=== PATIENT | male | born 1995 | race Caucasian/White ===

== ENCOUNTER 2018-12-22 08:35 | Emergency (ER) | payer SELFPAY ==
[2018-12-22 08:42] VITALS: BP 125/82; PULSE 93; RESP 16; TEMP 36.5; O2SAT 97
--- NOTE | 2018-12-22 08:56 | W.ED.GENAD ---
Discharge Plan Disposition Patient Disposition: HOME Condition: Fair Discharge Details Chief Complaint: Orthopedic Clinical Impression: Cellulitis, Ankle sprain Primary Care Provider: None,None ED Provider: Tamy Rubin Home Meds and New Rx's Prescriptions: New cephalexin [Keflex] 500 mg capsule 500 mg PO QID Qty: 28 RF: 0 Discharge Instructions Instructions: Ankle Sprain (ED), Cellulitis (ED) Additional Instructions: Encourage rest, ice, elevation. Tylenol and/or ibuprofen as needed for discomfort. Please continue with Bhavin wrap for swelling and pain persist. Your x-ray does not show any dislocation or fracture. However, the redness around the blister is concerning for skin infection. I think is appropriate to treat with antibiotics at this time. Please take Keflex as prescribed. Even if symptoms improve, please take the entire course. Our critical care rn will reach out to you regarding follow-up with primary care this week for reevaluation. Work note is attached. If you develop fever/chills, increased pain, spreading of the redness or other new/worsening symptoms please seek care urgently once again. Stand Alone Forms: Work Release Medical Decision Making Patient is 23-year-old male, accompanied by his , with chief complaint of left ankle pain. He reports that 4 days ago he rolled his, believes he suffered an inversion injury. Since that time, he has had medial sided ankle pain. States that initially it was fairly minimal but that the discomfort has increased. Pain has maximized over the past 24 hours. He did wear a pair of high boots yesterday in an effort to help support the ankle and found that these things greatly exacerbated his discomfort. Noted swelling yesterday to the medial aspect of the ankle. Awoke this morning with no blisters. On exam, the patient appears nontoxic. He has swelling and erythema to the medial aspect of the ankle. Has what appears to be fracture blisters over the medial malleolus. He has limited range of motion, particularly painful with dorsiflexion along the medial aspect of the ankle. No pain over the lateral malleolus, no pain in the foot. Vascular and sensation is intact. He is able to passively range the ankle. No pain on palpation over the fibular head or neck. As he is a point tender over the medial malleolus and does have the apparent fracture blisters, feel that imaging is appropriate at this time. I am concerned that he is developing cellulitis likely associated with the blisters. I do not see any evidence at this time for ostium myelitis. He is afebrile nontoxic-appearing. FINDINGS: Soft tissue swelling is seen about the ankle. The ankle mortise is intact. No fracture or subluxation is identified. No radiopaque foreign body seen. IMPRESSION: Soft tissue swelling but otherwise no acute findings. Discussed these findings with the patient. Advised sprain and accompanied cellulitis. Encourage rest, ice, elevation. Tylenol and ibuprofen as needed for discomfort. The blisters, feel that the best method for immobilization is an Bhavin wrap. He has been ambulating well. Patient will be prescribed Keflex. Work note given his request. Patient does not have primary care. I have asked her care according to help facilitate follow-up, will like for his ankle to be readdressed within the next 3 to 4 days. All the questions and concerns were addressed and he is in agreement with this plan. He will seek care urgently with any new or worsening symptoms. HPI General Mode of arrival: ambulatory. Date/Time Provider Initiated Documentation: 12/22/18 08:42. Limitations to Documentation: no limitations. Information obtained by: patient, family and RN notes reviewed. History of Present Illness 23 year old M presents to the emergency department with the chief complaint of left ankle pain, with intensity rated at 8. Quality is described as aching, and is localized to the left and lower extremity. Patient reports no radiation. Patient started experiencing this day(s) (4) and it has been constant (worsening). Immobilization improves symptom(s), Medication worsens symptoms . Patient notes no other symptoms.; denies fever/chills. Patient did receive the following treatments prior to arrival, none Related Data Home Medications Medication Instructions Recorded Confirmed cephalexin [Keflex] 500 mg PO QID #28 cap 12/22/18 Previous Rx's Medication Instructions Recorded cephalexin [Keflex] 500 mg PO QID #28 cap 12/22/18 Allergies Allergy/AdvReac Type Severity Reaction Status Date / Time Penicillins Allergy Severe SKIN RASH Unverified 12/22/18 08:46 General Stated Complaint: Orthopedic GAEL: 3 Review of Systems Constitutional Reports as per HPI, Denies chills, Denies fever(s), Denies headache(s) and Denies weakness ENT Denies headache(s) Cardiovascular Reports as per HPI Respiratory Reports as per HPI and Denies cough Musculoskeletal Reports as per HPI and Denies tingling Integumentary/Breasts Reports as per HPI, Reports erythema (blisters medial ankle with surrounding erythema), Reports skin pain, Reports skin swelling and Denies wounds Neurologic Reports as per HPI, Denies headache(s), Denies tingling, Denies paresthesias and Denies weakness [facility] Surgical History Appendectomy Repair of inguinal hernia Social History Smoking/Tobacco Use Status: Never Drug use: Never Substance use type: does not use Exam Const General: cooperative, healthy appearing, comfortable, no acute distress, well developed and well groomed Nutritional Appearance: average body habitus and well nourished Orientation: alert and awake Resp Effort & Inspection: normal respiratory effort, able to speak in complete sentences and no respiratory distress Cardio Rate: regular rate Rhythm: regular rhythm Skin General skin exam: erythema (along medial ankle into dorsal foot, appears to step from fx blisters) Neuro General: alert and awake Cognition: normal cognition Speech: speech normal Gait: normal gait Motor: muscle tone normal throughout Sensory Exam: no sensory deficits noted Extrem Left lower extremity: normal capillary refill, knee (no pain along fibular head/neck), lower leg Details: normal to inspection and no edema; no erythema, no tenderness, no localized swelling and no palpable cords, ankle Details: abnormal to inspection (swelling medial, erythema as above), tenderness Location: of the medial malleolus and anteromedially; not of the lateral malleolus, not of the anterior talofibular ligament, not of the achilles tendon, not posteriorly and not anteriorly, swelling Details: medially, abnormal ROM Details: pain with active ROM Details: with dorsiflexion and with eversion and warmth Location: medially; no abrasions, no lacerations, no ecchymosis, no crepitus and achilles tendon exam normal and foot Details: normal capillary refill, normal to inspection, no edema and vascular exam Details: dorsalis pedis pulse present, posterior tibial pulse present and normal capillary refill; no tenderness and no unusual warmth; abnormal to inspection (skin as above) Ankle/foot/toe images: 1. area of erythema with small grouping of what appears to be fracture blisters over medial malleolus Psych Appearance: grossly normal and well kempt Mental Status: mental status grossly normal Speech and Movement: speech and movement normal Course Vital Signs Temperature 36.5 C 12/22/18 08:42 Pulse 93 H 12/22/18 08:42 Respiratory Rate 16 12/22/18 08:42 Blood Pressure 125/82 12/22/18 08:42 Pulse Oximetry 97 12/22/18 08:42 Temperature 36.5 C 12/22/18 08:42 Temperature Source Skin 12/22/18 08:42 Pulse 93 H 12/22/18 08:42 Respiratory Rate 16 12/22/18 08:42 Respiratory Effort 12/22/18 08:47 Blood Pressure 125/82 12/22/18 08:42 Blood Pressure Position Sitting 12/22/18 08:42 Pulse Oximetry 97 12/22/18 08:42 Oxygen Delivery Method Room Air 12/22/18 08:42 Oxygen Flow Rate 0 12/22/18 08:42 Pain Level 9 12/22/18 08:47
[2018-12-22] MEDS: Ibuprofen 600 MG TAB PO (09:01)
[2018-12-22] MEDS: Acetaminophen 500 MG TAB 1000 MG PO (09:02)
--- NOTE | 2018-12-22 09:11 | DI.RAD_ITS ---
SYMPTOM/DIAGNOSIS: PAIN LEFT ANKLE: Three views were obtained. The ankle mortise appears well maintained. There is soft tissue swelling of the ankle. No fracture is identified.
--- NOTE | 2018-12-22 09:56 | DI.VRAD_ITS ---
EXAM: XR Left Ankle EXAM DATE/TIME: 12/22/2018 8:56 AM CLINICAL HISTORY: 23 years old, male; Patient HX: Left ankle pain, medial malleolus pain TECHNIQUE: Imaging protocol: XR Left ankle. Views: 3 or more views. COMPARISON: CR LEFT FIFTH TOE 01/27/2016 8:15 PM FINDINGS: Soft tissue swelling is seen about the ankle. The ankle mortise is intact. No fracture or subluxation is identified. No radiopaque foreign body seen. IMPRESSION: Soft tissue swelling but otherwise no acute findings. Dictated and Authenticated by: Sung Menjivar MD. Ordering:VICTORINO Morelos MD
[2018-12-22 10:20] VITALS: BP 108/70; PULSE 76; RESP 16; TEMP 36.6; O2SAT 96
--- NOTE | 2018-12-22 10:22 | NUR.NOTE ---
Nursing Note:Bhavin bandage applied to left ankle. BERNA, RN
== END 2018-12-22 10:24 | disposition home or self-care (01) ==
PROVIDERS: Emergency Provider Physician Assistant
DX: S93.402A Sprain of unspecified ligament of left ankle, initial encounter (principal); X50.9XXA Other and unspecified overexertion or strenuous movements or postures, initial encounter; L03.116 Cellulitis of left lower limb
CPT/HCPCS: 99283; 73610

== ENCOUNTER 2019-10-06 10:16 | Emergency (ER) | payer OTHER, BC, SELFPAY ==
[2019-10-06 10:24] VITALS: BP 121/82; PULSE 80; RESP 18; TEMP 36.6; O2SAT 98
--- NOTE | 2019-10-06 10:31 | ED.GENADUL_ITS ---
Discharge Plan Disposition Patient Disposition: HOME Condition: Stable Discharge Details Chief Complaint: Orthopedic Clinical Impression: Injury of shoulder Primary Care Provider: Chelsea Marina ED Provider: Dafne Michaels Home Meds and New Rx's Prescriptions: No Action No Known Home Meds RF: 0 Discharge Instructions Instructions: Rotator Cuff Injury (ED), Shoulder Pain (ED) Additional Instructions: Please return immediately to the emergency department if you develop any new or worsening symptoms, if your condition does not improve as expected, or if you become otherwise concerned. It is extremely important that you call soon as possible to make an appointment to be seen in follow-up for this visit by your primary care doctor and an orthopedic surgeon as we discussed. Stand Alone Forms: Work Release Referrals: Chelsea Marina [Primary Care Provider] - Vitaliy Jimenez MD [ [facility] STAFF PHYSICIAN] - Discharge Data Discharge Date/Time-TO BE ENTERED AT DEPARTURE: 10/06/19 11:37 Medical Decision Making Miky Kendrick is a 24-year-old man without reported history of major medical problems who presented to the emergency department with right shoulder pain while picking up his jackhammer this morning. On exam patient is well and nontoxic-appearing. Right upper extremity is neurovascularly intact. Initial concern for shoulder deformity while Pt clothed, after shirt removed no deformity noted. Diffuse TTP of the right shoulder without edema or overlying skin changes. No other tenderness of the right upper extremity. Concern for shoulder dislocation, fracture. Plan for IV pain control, x-ray. Will monitor and reassess. xray okay. Suspect rotator cuff injury. I had a lengthy discussion with Patient regarding return to emergency department precautions, home care, and importance of outpatient follow-up. Pt verbalizes understanding of the plan and is amenable . Patient discharged to home with clear plan for outpatient follow-up. All questions were answered. Disposition decision was made weighing the risks and benefits of hospitalization versus outpatient treatment, the risk for further decompensation, and the patient's wishes. Medical Records Medical records reviewed: Yes I reviewed the patient's medical records. Imaging Data Radiologic Study: Attestation: I personally reviewed and interpreted this imaging study as follows: Radiologist's impression: EXAM: XR SHOULDER RT COMPLETE 2+V CLINICAL HISTORY: trauma, deformity. TECHNIQUE: 2D digital imaging was performed. COMPARISON: No exams were available for comparison FINDINGS: BONES: No acute fracture is present. No bony destructive lesion is seen. JOINTS: No dislocation present. SOFT TISSUE: Normal. IMPRESSION: Unremarkable radiographs of the right shoulder. HPI General Mode of arrival: ambulatory . Date/Time Provider Initiated Documentation: 10/06/19 10:26 . Limitations to Documentation: no limitations . Information obtained by: patient, RN notes reviewed and old records reviewed . HPI Narrative: Miky Kendrick is a 24-year-old man without reported history of major medical problems presenting to the emergency room with shoulder pain. Patient reports that this morning he was jackhammering this morning, and then had sudden onset pain in his right shoulder while picking the jackhammer up. Patient reports this occurred just prior to arrival. He denies any other pain and pain in the right shoulder. He reports that the tips of all 5 digits in his right hand feel tingly, he denies any other numbness or weakness. Denies fever, shortness of breath, cough, vomiting, diarrhea. Patient reports that he was previously in his usual state of health. He states that he has never dislocated his shoulder before. Related Data Home Medications Medication Instructions Recorded Confirmed Unknown [No Known Home Meds] 10/06/19 10/06/19 Allergies Allergy/AdvReac Type Severity Reaction Status Date / Time Penicillins Allergy Severe SKIN RASH Unverified 10/06/19 10:32 General Stated Complaint: Orthopedic GAEL: 2 Review of Systems Narrative: Constitutional: denies fevers Eyes: denies eye pain ENT: denies ear pain, dental pain, sore throat Cardiovascular: denies chest pain Respiratory: denies SOB, cough GI: denies abdominal pain, vomiting : denies flank pain MSK: reports right shoulder pain, denies other arthralgias, back pain, neck pain, myalgias Skin: denies rash Neuro: denies headaches, numbness, weakness, reports tingling right fingers PFS Social History Smoking/Tobacco Use Status: Never Drug use: Never Substance use type: does not use Do you feel safe at home: Yes Do you feel safe in your relationship?: Yes Exam Narrative Exam Narrative: Constitutional: well and [id number], pleasant, conversing normally HENT: head atraumatic/normocephalic/normal inspection, mucous membranes moist Eyes: conjunctiva normal, sclera normal, pupils 3mm b/l Neck: no stridor, normal ROM, trachea midline Resp: normal work of breathing, no resp distress Cardio: regular rate, regular rhythm, radial pulses intact and symmetric Skin: warm, dry, normal color, no rash Neuro: alert, not altered, grossly non-focal, normal tone, 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 right clavicle NTTP. Psych: normal mood, normal affect, normal behavior Course Vital Signs Vital signs: Vital Signs Temperature 36.6 C 10/06/19 10:24 Pulse 80 10/06/19 10:24 Respiratory Rate 18 10/06/19 10:24 Blood Pressure 121/82 10/06/19 10:24 Pulse Oximetry 98 10/06/19 10:24 Temperature 36.6 C 10/06/19 10:24 Temperature Source Oral 10/06/19 10:24 Pulse 80 10/06/19 10:24 Respiratory Rate 18 10/06/19 10:24 Blood Pressure 121/82 10/06/19 10:24 Pulse Oximetry 98 10/06/19 10:24 Oxygen Delivery Method Cpap 10/06/19 10:24 Oxygen Flow Rate 0 10/06/19 10:24 Pain Level 6 10/06/19 10:24
--- NOTE | 2019-10-06 10:54 | DI.RAD_ITS ---
EXAM: XR SHOULDER RT COMPLETE 2+V CLINICAL HISTORY: trauma, deformity. TECHNIQUE: 2D digital imaging was performed. COMPARISON: No exams were available for comparison FINDINGS: BONES: No acute fracture is present. No bony destructive lesion is seen. JOINTS: No dislocation present. SOFT TISSUE: Normal. IMPRESSION: Unremarkable radiographs of the right shoulder. DATA REPOSITORY: RADIATION DOSE DELIVERED:
[2019-10-06] MEDS: Ibuprofen 600 MG TAB PO (11:30)
== END 2019-10-06 11:37 | disposition home or self-care (01) ==
PROVIDERS: Emergency Provider Student in an Organized Health Care Education/Training Program; PCP Nurse Practitioner Family
DX: S49.91XA Unspecified injury of right shoulder and upper arm, initial encounter (principal); X50.0XXA Overexertion from strenuous movement or load, initial encounter; Y99.0 Civilian activity done for income or pay
CPT/HCPCS: 99284; 73030; L3650

== ENCOUNTER 2019-12-31 01:13 | Emergency (ER) | payer BC, SELFPAY ==
[2019-12-31 01:15] VITALS: BP 121/71; PULSE 110; RESP 16; TEMP 36.6; O2SAT 95
--- NOTE | 2019-12-31 01:22 | ED.GENADUL_ITS ---
Discharge Plan Disposition Patient Disposition: HOME Condition: Stable Discharge Details Clinical Impression: Nausea & vomiting Primary Care Provider: Chelsea Marina ED Provider: Cedric Hu Home Meds and New Rx's Prescriptions: New ondansetron 4 mg tablet,disintegrating 4 mg PO Q8H PRN (Reason: nausea and vomiting) Qty: 30 RF: 0 Continued ibuprofen 200 mg tablet 200 mg PO Q6H PRNRF: 0 acetaminophen 325 mg capsule 325 mg PO ONCE PRNRF: 0 Discharge Instructions Instructions: Acute Nausea and Vomiting (ED) Additional Instructions: drink fluids to try and stay hydrated if symptoms continue in a week follow up with your primary care provider if you feel more ill, have worsening abdominal pain or persistent vomit return to the emergency department Medical Decision Making 24 yo male with no chronic medical problems who denies significant alcohol use and drug use comes in with chief complaint of nausea for the past few hours with intermittent nonbilious nonbloody vomit. Denies any new foods and has not had a bowel movement since this started. States no fevers, chest pain/pressure, dyspnea, abdominal pain. HE arrives hd stable in no distress walking with steady gait. He is speaking in full sentences, has a soft nondistended nontender abdomen with hyperactive bowel sounds. Suspect gastroenteritis vs food related illness. Will tx with fluids, zofran and evaluate for possible hepatitis and pancreatitis. Given no abdominal tenderness on exam do not feel imaging at present time indicated, unlikely cholecystitis, sbo, appendicitis or other surgical pathology pt feels much improved with zofran and fluids and labs show no significant abnormalities, anion gap mildly elevated likely from mild dehydration. HE still has no abdominal tenderness. He feels well enough to go home. I recommended f/u with pcp and he was also given return precautions to return to the emergency department Differential Diagnosis Differential Diagnosis: gastroenteritis, pancreatitis, food illness HPI General Mode of arrival: ambulatory . Date/Time Provider Initiated Documentation: 12/31/19 01:15 . Limitations to Documentation: no limitations . Information obtained by: patient . History of Present Illness 24 year old M presents to the emergency department with the chief complaint of nausea, described as moderate, Patient started experiencing this hour(s) (4) and it has been constant. No relieving factors improve symptom(s), No exacerbating factors reported . Patient did receive the following treatments prior to arrival, none Related Data Home Medications Medication Instructions Recorded Confirmed acetaminophen 325 mg capsule 325 mg PO ONCE PRN 10/21/19 12/31/19 ibuprofen 200 mg tablet 200 mg PO Q6H PRN 10/21/19 12/31/19 ondansetron 4 mg PO Q8H PRN #30 tab 12/31/19 Previous Rx's Medication Instructions Recorded ondansetron 4 mg PO Q8H PRN #30 tab 12/31/19 Allergies Allergy/AdvReac Type Severity Reaction Status Date / Time Penicillins Allergy Severe SKIN RASH Verified 12/31/19 01:19 General Stated Complaint: Nausea/Vomit/Diar GAEL: 3 Review of Systems All systems reviewed & are unremarkable except as noted in HPI and below Constitutional Constitutional: Denies chills, Denies fever(s) and Denies weakness Cardiovascular Cardiovascular: Denies chest pain and Denies dyspnea Respiratory Respiratory: Denies cough and Denies dyspnea Musculoskeletal Musculoskeletal: Denies joint swelling Neurologic Neurologic: Denies weakness Psychiatric Psychiatric: Denies depression [facility] Medical History (Updated 12/31/19 @ 02:10 by Cedric Hu MD) Biceps tendinitis of right upper extremity Superior labrum [id number] (SLAP) tear of right shoulder Surgical History Appendectomy Repair of inguinal hernia Social History Smoking/Tobacco Use Status: Never Alcohol Intake: current Alcohol Intake frequency: a few times a month Drug use: Never Substance use type: does not use Current gender identity: male Do you feel safe at home: Yes Do you feel safe in your relationship?: Yes Exam Const General: no acute distress Orientation: alert HENKS Head: normal to inspection Ears: external ears normal General nose exam: external nose normal Mouth: moist mucous membranes Eyes General: appearance normal, both eyes and all related structures Neck Neck: normal visual inspection Resp Effort & Inspection: normal respiratory effort and able to speak in complete sentences Cardio Rate: regular rate GI Palpation: soft and nontender Skin General skin exam: no rashes or lesions noted Neuro General: patient alert and patient oriented x3 Extrem General: normal to inspection Psych Mental Status: mental status grossly normal Course Vital Signs Vital signs: Vital Signs Temperature 36.6 C 12/31/19 01:15 Pulse 110 H 12/31/19 01:15 Respiratory Rate 16 12/31/19 01:15 Blood Pressure 121/71 12/31/19 01:15 Pulse Oximetry 95 12/31/19 01:15 Temperature 36.6 C 12/31/19 01:15 Temperature Source Skin 12/31/19 01:15 Pulse 110 H 12/31/19 01:15 Respiratory Rate 16 12/31/19 01:15 Respiratory Effort Non-Labored 12/31/19 01:18 Blood Pressure 121/71 12/31/19 01:15 Pulse Oximetry 95 12/31/19 01:15 Oxygen Delivery Method Room Air 12/31/19 01:15 Oxygen Flow Rate 0 12/31/19 01:15 Pain Level 0 12/31/19 01:15
[2019-12-31] MEDS: Ondansetron 4 MG/2 ML VIAL IVP (01:25)
[2019-12-31] MEDS: Normal Saline 1,000 ML 1000 ML IV (01:26)
[2019-12-31 01:33] LABS: Abs Immature Grans 0.01 10^3/uL (0.0-0.06); Absolute Basophil Count 0.02 10^3/uL (0.0-0.2); Absolute Eosinophil Count 0.02 10^3/uL (0.0-0.7); Absolute Lymphocyte Count 2.68 10^3/uL (1.2-3.4); Absolute Monocyte Count 0.29 10^3/uL (0.1-0.8); Basophils % 0.3; Eosinophils % 0.3; HCT 44.3 % (40.0-50.0); HGB 14.7 g/dL (13.5-17.5); Immature Grans % 0.2; Lymphocytes % 43.8; MCH 28.9 pg (27.0-33.0); MCHC 33.2 % (32.0-36.0); MPV 11.9 fL (8.0-11.0); Monocytes % 4.7; Neutrophils % 50.7; Nucleated RBC 0 %; Platelet Count 221 10^3/uL (130-400); RBC 5.09 10^6/uL (4.36-5.78); RDW 12.7 % (11.8-14.1); RDW-SD 40.1 fL; WBC 6.12 10^3/uL (4.4-10.8)
[2019-12-31 01:55] LABS: ALT 45 U/L (16-63); AST 24 U/L (15-37); Albumin 4.8 g/dL (3.4-5.0); Alkaline Phosphatase 53 U/L (46-116); Anion Gap 13.6 mmol/L (3-11); BUN 15 mg/dL (7-18); Bilirubin, Direct 0.15 mg/dL (0.00-0.20); Bilirubin, Total 0.8 mg/dL (0.2-1.0); CO2 24.4 mmol/L (21.0-32.0); CREATININE 0.84 mg/dL (0.70-1.30); Calcium 9.3 mg/dL (8.5-10.1); Chloride 95 mmol/L (98-107); Glucose 110 mg/dL (74-106); Lipase 243 U/L (73-393); Magnesium 2.2 mg/dL (1.8-2.4); Potassium 3.4 mmol/L (3.5-5.1); Sodium 133 mmol/L (136-145); Total Protein 8.5 g/dL (6.4-8.2)
[2019-12-31 02:15] VITALS: PULSE 97; RESP 16; O2SAT 100
[2019-12-31] MEDS: Ondansetron O.D.T. 4 MG TABEF, 3 TABS/BTL PO (02:15)
== END 2019-12-31 02:20 | disposition home or self-care (01) ==
PROVIDERS: Emergency Provider Emergency Medicine; PCP Nurse Practitioner Family
DX: R11.2 Nausea with vomiting, unspecified (principal); E86.0 Dehydration
CPT/HCPCS: 36415; 80053; 83690; 96361; 96374; 99284; 82248; 83735; 85025; 99283; J2405

== ENCOUNTER 2020-02-24 08:22 | Outpatient (REF) | payer BC, SELFPAY ==
[2020-02-24 18:31] LABS: ALT 53 U/L (16-63); AST 21 U/L (15-37); Albumin 4.1 g/dL (3.4-5.0); Alkaline Phosphatase 50 U/L (46-116); Anion Gap 12.2 mmol/L (3-11); BUN 19 mg/dL (7-18); CO2 23.8 mmol/L (21.0-32.0); CREATININE 0.98 mg/dL (0.70-1.30); Calcium 9.2 mg/dL (8.5-10.1); Chloride 107 mmol/L (98-107); Glucose 101 mg/dL (74-106); Potassium 4.3 mmol/L (3.5-5.1); Sodium 143 mmol/L (136-145); Total Protein 7.3 g/dL (6.4-8.2)
== END 2020-02-24 08:42 ==
LOC: NCHCN 08:22
PROVIDERS: PCP Nurse Practitioner Family; Visit Provider Nurse Practitioner Family
DX: F10.20 Alcohol dependence, uncomplicated (principal)
CPT/HCPCS: 80053

== ENCOUNTER 2020-09-14 15:31 | Emergency (ER) | payer BC, SELFPAY ==
[2020-09-14] VITALS (17 sets, daily range): BP systolic 108–127; BP diastolic 64–82; PULSE 72–86; RESP 13–26; TEMP 36.7; O2SAT 95–98
--- NOTE | 2020-09-14 15:30 | RT.EKG_ITS ---
APPROVED REPORT Exam: Resting ECG Reason for Exam: ab pain Patient Location: E HR:85 bpm ECG Measurements Heart Rate 85 AXIS DC 183 P 46 QRSd 93 QRS 39 QT 353 T 52 QTc 421 Conclusion Sinus rhythm...normal P axis, V-rate 60- 99
--- NOTE | 2020-09-14 15:45 | DI.CT_ITS ---
Exam(s) CT ABDOMEN PELVIS W EXAM: CT ABDOMEN PELVIS W CLINICAL HISTORY: epigastric pain and nausea TECHNIQUE: Imaging Protocol: Axial computed tomography images with coronal and sagittal reformatted images were created and reviewed CONTRAST MATERIAL: Intravenous: Omnipaque 350 Contrast volume:100 mL Oral: No COMPARISON: CT FACIAL WITHOUT CONTRAST from 01/30/2011 FINDINGS: ABDOMEN: Lung Bases: Normal where visualized. Liver: There is diffuse decreased attenuation of the liver consistent with fatty infiltration. No me asurable mass. Portal, Superior Mesenteric, and Splenic Veins: Unremarkable. Gallbladder and Biliary Tract: No radiodense calculus or dilation. Pancreas: Normal density, no abnormal calcifications or inflammatory process. Spleen: Normal. Adrenals: No masses seen. Kidneys: Normal size, contour and axis. No radiodense stones or obstructive uropathy. There is a 1.2 cm simple cyst in the lower pole of the left kidney. No follow-up is recommended. Abdominal Aorta: Abdominal portion non-dilated. Bowel: No obstruction or bowel wall thickening. No evidence of appendicitis. Peritoneal Cavity: No ascites, collection or mesenteric inflammatory response. No free air. Lymph Nodes: There are mildly enlarged lymph nodes in the mesentery and right lower quadrant. This ma y represent mesenteric adenitis. Bones: Within normal limits for the patient's age. Soft Tissues: Unremarkable. PELVIS: Bladder: Symmetric distention, no gross wall thickening. Reproductive Organs: Unremarkable as visualized. Lymph Nodes: Within normal limits. Bones: Within normal limits for the patient's age. IMPRESSION: 1. Fatty liver. 2. Enlarged mesenteric and right lower quadrant lymph nodes which may represent mesenteric adenitis. RADIATION DOSE DELIVERED: 1,135.77mGy.cm Total DLP DATA REPOSITORY: All CT scans at this facility are submitted to the National Radiology Data Registry (NRDR) Dose Index Registry (DIR) with the [employer] (A[employer]). RADIATION OPTIMIZATION: All CT scans at this facility use at least one of these dose optimization te chniques: automated exposure control; mA and/or kV adjustment per patient size (includes targeted exa ms where dose is matched to clinical indication); or iterative reconstruction.
--- NOTE | 2020-09-14 15:54 | ED.GENADUL_ITS ---
Discharge Plan Disposition Patient Disposition: HOME Condition: Improving Discharge Details Clinical Impression: Gastritis Primary Care Provider: Chelsea Marina ED Provider: Cali Deshpande Home Meds and New Rx's Prescriptions: New sucralfate [Carafate] 1 gram tablet 1 g PO BID Qty: 60 RF: 0 Continued acetaminophen 325 mg capsule 650 mg PO Q6H PRNRF: 0 omeprazole 40 mg capsule,delayed release(DR/EC) 40 mg PO DAILY RF: 0 Discharge Instructions Instructions: Gastritis (ED) Additional Instructions: Avoid fatty, fried, spicy, citrus or tomato-based foods. Observe a bland diet for the next 2 weeks. Minimize caffeine and soda use. No eating 2 to 3 hours prior to bedtime and may try sleeping with head of the bed elevated 2-3 pillows. Increase omeprazole to 40 mg twice daily for 10 days, then return to 40 mg daily. Begin Carafate 2 times daily. We will ask care management to make you a follow-up appointment in primary care clinic. Return to the emergency department for any acute concerns. Medical Decision Making 25-year-old male presents from home with 2 to 3 weeks of epigastric burning abdominal pain that is worse at night and with certain foods. She had some nausea and noticed some dark stools. No respiratory illness. Otherwise healthy young man who has daily use of coffee and soda. Generally takes his omeprazole during lunch. No other significant medical problems. Arrives to ER well-appearing, normal vital signs, tender in the epigastrium. Differential diagnosis includes pancreatitis, gastritis, less likely inflammatory bowel disease. IV access established, patient given PPI and GI cocktail. Laboratories essentially reassuring with white count 3.4, hematocrit 38. Note of total bili 1.6, otherwise normal LFTs, lipase, and troponin. CT: Question subtle mesenteric adenitis. OTherwise unremarkable. Patient reported near complete relief of discomfort following GI cocktail. Consistent with gastritis. Will have him improve his diet, increase antiacid management, and have him follow with primary care for recheck. If symptoms persist despite improved medical management, would then consider referral to surgery for upper GI endoscopy. Lab Data Lab results reviewed: Yes I reviewed the patient's lab results. Labs: Laboratory Results - last 24 hr 09/14/20 09/14/20 15:45 15:45 WBC 3.47 L RBC 4.58 Hgb 13.2 L Hct 38.8 L MCV 84.7 MCH 28.8 MCHC 34.0 RDW 13.3 Plt Count 185 MPV 11.1 H Immature Gran % 0.3 Neutrophils % 42.5 Lymphocytes % 42.1 Monocytes % 13.0 Eosinophils % 1.2 Basophils % 0.9 Nucleated RBC % 0 Absolute Neutrophils 1.47 Absolute Lymphocytes 1.46 Absolute Monocytes 0.45 Absolute Eosinophils 0.04 Absolute Basophils 0.03 Sodium 141 Potassium 3.8 Chloride 104 Carbon Dioxide 25.7 Anion Gap 11.3 H BUN 14 Creatinine 1.0 Estimated GFR/1.73 m2 >= 60.00 Glucose 96 Calcium 9.1 Magnesium 2.1 Total Bilirubin 1.6 H AST 29 ALT 56 Alkaline Phosphatase 56 Troponin I < 0.05 Total Protein 7.9 Albumin 4.2 Lipase 64 HPI General Date/Time Provider Initiated Documentation: 09/14/20 15:32 . Limitations to Documentation: no limitations . History of Present Illness 25 year old M presents to the emergency department with the chief complaint of Epigastric abdominal pain for weeks, worse at night, Quality is described as dull and constant, and is localized to the abdomen. Patient reports no radiation. Patient started experiencing this week(s) and it has been intermittent. No relieving factors improve symptom(s), Eating worsens symptoms . Patient notes nausea/vomiting; denies chest pain, cough and shortness of breath. Patient did receive the following treatments prior to arrival, none Related Data Home Medications Medication Instructions Recorded Confirmed acetaminophen 325 mg capsule 650 mg PO Q6H PRN 10/21/19 09/14/20 omeprazole 40 mg PO DAILY 09/14/20 09/14/20 sucralfate [Carafate] 1 g PO BID #60 tab 09/14/20 Previous Rx's Medication Instructions Recorded sucralfate [Carafate] 1 g PO BID #60 tab 09/14/20 Allergies Allergy/AdvReac Type Severity Reaction Status Date / Time Penicillins Allergy Severe SKIN RASH Verified 09/14/20 15:43 General Stated Complaint: Abd Prob GAEL: 3 Review of Systems Narrative: 6 systems reviewed otherwise negative [facility] Medical History Biceps tendinitis of right upper extremity Superior labrum kuezcddm-lb-ojuusrcza (SLAP) tear of right shoulder Surgical History Appendectomy Repair of inguinal hernia Social History Smoking/Tobacco Use Status: Never Smoking risk assessment performed?: Yes Alcohol Intake: former Drug use: Never Substance use type: does not use Current gender identity: male Do you feel safe at home: Yes Do you feel safe in your relationship?: Yes Exam Narrative Exam Narrative: GEN: awake, alert, oriented 3. Pleasant, well groomed, interactive. HEAD: Normocephalic, atraumatic ENT: Mucous membranes moist, oropharynx unremarkable, External ear exam unremarkable EYES: PERRL, EOMI NECK: Full ROM, no ANNY, no menigismus CHEST/RESP: Nontender, clear to auscultation bilateral, no wheeze/rhonchi/rales CARDIOVASCULAR: RRR, no murmur, rub rukhsana. 2+ Rad pulse bilateral ABDOMEN: Soft, tender in the epigastrium to left upper quadrant without rebound or guarding, no mass. +Bowel sounds EXT: Full ROM, no edema, no rash Neuro: Grossly normal neurologic exam, conversant, interactive. Psych: Speech fluent, thoughts congruent, affect normal Course Vital Signs Vital signs: Vital Signs Temperature 36.7 C 09/14/20 15:39 Pulse 86 09/14/20 15:39 Blood Pressure 127/82 09/14/20 15:39 Pulse Oximetry 98 09/14/20 15:39 Temperature 36.7 C 09/14/20 15:39 Temperature Source Temporal Artery Scan 09/14/20 15:39 Pulse 75 09/14/20 15:46 Pulse 76 09/14/20 15:46 Respiratory Rate 13 09/14/20 15:46 Respiratory Effort Non-Labored 09/14/20 15:42 Blood Pressure 127/82 09/14/20 15:46 Blood Pressure Mean 91 09/14/20 15:46 Blood Pressure Position Sitting 09/14/20 15:39 Pulse Oximetry 98 09/14/20 15:39 Oxygen Delivery Method Room Air 09/14/20 15:39 Oxygen Flow Rate 0 09/14/20 15:39 Pain Level 6 09/14/20 15:39
[2020-09-14] MEDS: Pantoprazole 40 MG VIAL IVP (16:00)
[2020-09-14 16:06] LABS: Abs Immature Grans 0.01 10^3/uL (0.0-0.06); Absolute Basophil Count 0.03 10^3/uL (0.0-0.2); Absolute Eosinophil Count 0.04 10^3/uL (0.0-0.7); Absolute Lymphocyte Count 1.46 10^3/uL (1.2-3.4); Absolute Monocyte Count 0.45 10^3/uL (0.1-0.8); Absolute Neutrophil Count 1.47 10^3/uL (1.2-6.7); Basophils % 0.9; Eosinophils % 1.2; HCT 38.8 % (40.0-50.0); HGB 13.2 g/dL (13.5-17.5); Immature Grans % 0.3; Lymphocytes % 42.1; MCH 28.8 pg (27.0-33.0); MCV 84.7 fL (80-95); MPV 11.1 fL (8.0-11.0); Neutrophils % 42.5; Nucleated RBC 0 %; Platelet Count 185 10^3/uL (130-400); RBC 4.58 10^6/uL (4.36-5.78); RDW 13.3 % (11.8-14.1); RDW-SD 41.1 fL; WBC 3.47 10^3/uL (4.4-10.8)
[2020-09-14 16:21] LABS: ALT 56 U/L (16-63); AST 29 U/L (15-37); Albumin 4.2 g/dL (3.4-5.0); Alkaline Phosphatase 56 U/L (46-116); Anion Gap 11.3 mmol/L (3-11); BUN 14 mg/dL (7-18); Bilirubin, Total 1.6 mg/dL (0.2-1.0); CO2 25.7 mmol/L (21.0-32.0); Calcium 9.1 mg/dL (8.5-10.1); Chloride 104 mmol/L (98-107); Glucose 96 mg/dL (74-106); Lipase 64 U/L (73-393); Magnesium 2.1 mg/dL (1.8-2.4); Potassium 3.8 mmol/L (3.5-5.1); Sodium 141 mmol/L (136-145); Total Protein 7.9 g/dL (6.4-8.2)
[2020-09-14 16:23] LABS: Troponin I < 0.05 ng/mL (<0.06)
[2020-09-14] MEDS: Omnipaque 350 MG/ML 100 ML BTL IJ (16:24)
[2020-09-14] MEDS: Normal Saline - Diluent 50 ML VIAL IV (16:25)
--- NOTE | 2020-09-14 17:00 | DI.VRAD_ITS ---
PROCEDURE INFORMATION: Exam: CT Abdomen And Pelvis With Contrast Exam date and time: 09/14/2020 3:54 PM Age: 25 years old Clinical indication: Pain; Nausea; Other: Epigastric TECHNIQUE: Imaging protocol: Computed tomography of the abdomen and pelvis with contrast. Radiation optimization: All CT scans at this facility use at least one of these dose optimization techniques: automated exposure control; mA and/or kV adjustment per patient size (includes targeted exams where dose is matched to clinical indication); or iterative reconstruction. Contrast material: OMNIPAQUE 350; Contrast volume: 100 ml; Contrast route: INTRAVENOUS (IV); COMPARISON: US PELVIS LIMITED ([id number]) 05/04/2014 1:12 PM FINDINGS: Liver: The liver appears diffusely decreased in density. Gallbladder and bile ducts: Normal. No calcified stones. No ductal dilation. Pancreas: Normal. No ductal dilation. Spleen: Normal. No splenomegaly. Adrenal glands: Normal. No mass. Kidneys and ureters: Normal. No hydronephrosis. Stomach and bowel: Unremarkable. No obstruction. No mucosal thickening. Appendix: The appendix is not seen and is presumably surgically absent. Intraperitoneal space: Unremarkable. No free air. No significant fluid collection. Vasculature: Unremarkable. No abdominal aortic aneurysm. Lymph nodes: There are multiple mildly enlarged mesenteric lymph nodes in the right lower quadrant. Urinary bladder: Unremarkable as visualized. Reproductive: Unremarkable as visualized. Bones/joints: Unremarkable. No acute fracture. Soft tissues: Unremarkable. IMPRESSION: 1. Fatty liver disease. 2. Mildly enlarged mesenteric lymph nodes of the right lower quadrant consistent with mesenteric adenitis. Dictated and Authenticated by: Kt Catalan MD. Ordering:JOSE Leiva MD
[2020-09-14] MEDS: Sucralfate 1 GM TAB PO (17:29)
--- NOTE | 2020-09-14 17:34 | NUR.NOTE ---
Nursing Note: faxed referral to pcp
== END 2020-09-14 17:33 | disposition home or self-care (01) ==
PROVIDERS: Emergency Provider Emergency Medicine; PCP Nurse Practitioner Family
DX: K29.00 Acute gastritis without bleeding (principal); R11.0 Nausea
CPT/HCPCS: 36415; 80053; 83690; 93005; 96374; 99285; 74177; 83735; 84484; 85025; 93010; 99284; J3490

== ENCOUNTER 2020-12-10 16:04 | Outpatient (CLI) | payer BC, SELFPAY ==
--- NOTE | 2020-12-10 | DI.RAD_ITS ---
Exam(s) XR FOOT LT COMPLETE EXAM: XR FOOT LT COMPLETE CLINICAL HISTORY: LT FOOT PAIN M79.672. TECHNIQUE: 2D digital imaging was performed. COMPARISON: No exams were available for comparison FINDINGS: BONES: No acute fracture is present. No bony destructive lesion is seen. JOINTS: No dislocation present. SOFT TISSUE: Normal. IMPRESSION: Unremarkable radiographs of the left foot. DATA REPOSITORY: RADIATION DOSE DELIVERED:
--- NOTE | 2020-12-10 17:08 | DI.VRAD_ITS ---
PROCEDURE INFORMATION: Exam: XR Left Foot Exam date and time: 12/10/2020 4:27 PM Age: 25 years old Clinical indication: Other: Lt foot pain; Patient HX: Left foot pain after fall. TECHNIQUE: Imaging protocol: XR Left foot. Views: 3 or more views. COMPARISON: CR XR ANKLE LT COMPLETE 12/22/2018 9:11 AM FINDINGS: Bones/joints: Normal. Soft tissues: Normal. IMPRESSION: No acute findings. Dictated and Authenticated by: Erick Enriquez MD. Ordering:ANGELI Krueger MD
== END 2020-12-10 16:24 ==
PROVIDERS: PCP Nurse Practitioner Family; Visit Provider Family Medicine
DX: M79.672 Pain in left foot (principal)
CPT/HCPCS: 73630

== ENCOUNTER 2022-02-27 18:41 | Emergency (ER) | payer MEDICAID, SELFPAY ==
[2022-02-27 18:45] VITALS: BP 144/81; PULSE 66; RESP 18; TEMP 36.7; O2SAT 97
[2022-02-27] MEDS: Clindamycin 150 MG CAP 450 MG PO (19:05)
[2022-02-27] MEDS: Benzocaine 20% Gel 30 GM JAR MM (19:05)
--- NOTE | 2022-02-27 19:14 | ED.GENADUL_ITS ---
Discharge Plan Disposition Patient Disposition: HOME Condition: Stable Discharge Details Clinical Impression: Pain, dental Primary Care Provider: Chelsea Marina ED Provider: Cedric Hu Home Meds and New Rx's Prescriptions: New clindamycin HCl 150 mg capsule 450 mg PO TID 7 Days Qty: 63 0RF Continued acetaminophen 325 mg capsule 650 mg PO Q6H PRN omeprazole 40 mg capsule,delayed release(DR/EC) 40 mg PO DAILY Label Comments: TAKE ONE CAPSULE BY MOUTH EVERY DAY Discharge Instructions Instructions: Toothache (ED) Additional Instructions: you can take ibuprofen and tylenol as needed, follow dosing instructions on packaging follow up with your dentist as soon as possible if you feel more ill, have severe worsening pain or unable to swallow liquids return to the emergency department Medical Decision Making 26 yo male who states he has had issues with his right lower anterior molar and is supposed to be having dental work done on it in the future, comes in with right lower anterior molar pain in this same tooth. He states he was eating a ham sandwich and started to have pain. He denies any trauma or falls, no fevers, dyspnea or difficulty swallowing. He arrives stable, the tooth he is having pain in has a small 2cm missing portion with surround caries, no visible pulp r dentin on exam, no swelling of the gums or abscess, midline uvula, no submandibular swelling or restricted neck movements. Findings concsistent with albert class I fracture, will provide benzocaine and prophylactic clindamycin, he will f/u with his dentist and return precautions given Differential Diagnosis Differential Diagnosis: dental fracture, caries HPI General Mode of arrival: ambulatory . Date/Time Provider Initiated Documentation: 02/27/22 18:44 . Limitations to Documentation: no limitations . Information obtained by: patient . History of Present Illness 26 year old M presents to the emergency department with the chief complaint of dental pain, described as moderate, Patient started experiencing this hour(s) (2) and it has been constant. No relieving factors improve symptom(s), No exacerbating factors reported . Patient notes no other symptoms.. Patient did receive the following treatments prior to arrival, none Related Data Home Medications Medication Instructions Recorded Confirmed acetaminophen 325 mg capsule 650 mg PO Q6H PRN 10/21/19 02/27/22 omeprazole 40 mg capsule,delayed 40 mg PO DAILY 09/14/20 02/27/22 release clindamycin HCl 150 mg capsule 450 mg PO TID 7 days #63 caps 02/27/22 Previous Rx's Medication Instructions Recorded clindamycin HCl 150 mg capsule 450 mg PO TID 7 days #63 caps 02/27/22 Allergies Allergy/AdvReac Type Severity Reaction Status Date / Time Penicillins Allergy Severe SKIN RASH Verified 09/14/20 15:43 General Stated Complaint: DentalOral GAEL: 4 Review of Systems All systems reviewed & are unremarkable except as noted in HPI and below Constitutional Constitutional: Denies chills, Denies fever(s) and Denies weakness Cardiovascular Cardiovascular: Denies chest pain and Denies dyspnea Respiratory Respiratory: Denies cough and Denies dyspnea Gastrointestinal Gastrointestinal: Denies abdominal pain, Denies nausea and Denies vomiting Integumentary/Breasts Skin/Breast: Denies rash Neurologic Neurologic: Denies weakness PFSH All Active Problems (Updated 02/27/22 @ 19:21 by Cedric Hu MD) Gastritis (Acute) Pain, dental (Acute) Adhesive capsulitis of right shoulder (Acute) Medical History Biceps tendinitis of right upper extremity Superior labrum ljrzjssj-vs-ggurjwpld (SLAP) tear of right shoulder Surgical History Appendectomy Repair of inguinal hernia Social History Smoking/Tobacco Use Status: Never Smoking risk assessment performed?: Yes Alcohol Intake: current Alcohol Intake frequency: a few times a week Drug use: Never Substance use type: does not use Current gender identity: male Do you feel safe at home: Yes Do you feel safe in your relationship?: Yes Exam Const General: no acute distress Orientation: alert HENMT Head: normal to inspection Ears: external ears normal General nose exam: external nose normal Mouth: moist mucous membranes Eyes General: appearance normal, both eyes and all related structures Neck Neck: normal visual inspection Resp Effort & Inspection: normal respiratory effort and able to speak in complete sentences Cardio Rate: regular rate Skin General skin exam: no rashes or lesions noted Neuro General: patient alert and patient oriented x3 Extrem General: normal to inspection Psych Mental Status: mental status grossly normal Course Vital Signs Vital signs: Vital Signs Temperature 36.7 C 02/27/22 18:45 Pulse 66 02/27/22 18:45 Respiratory Rate 18 02/27/22 18:45 Blood Pressure 144/81 H 02/27/22 18:45 Pulse Oximetry 97 02/27/22 18:45 Temperature 36.7 C 02/27/22 18:45 Temperature Source Temporal Artery Scan 02/27/22 18:45 Pulse 66 02/27/22 18:45 Respiratory Rate 18 02/27/22 18:45 Blood Pressure 144/81 H 02/27/22 18:45 Blood Pressure Position Sitting 02/27/22 18:45 Pulse Oximetry 97 02/27/22 18:45 Pain Level 7 02/27/22 18:45
== END 2022-02-27 19:26 | disposition home or self-care (01) ==
PROVIDERS: Emergency Provider Emergency Medicine; PCP Nurse Practitioner Family
DX: K08.89 Other specified disorders of teeth and supporting structures (principal)
CPT/HCPCS: 99283

== ENCOUNTER 2022-05-26 12:12 | Outpatient (CLI) | payer MEDICAID, SELFPAY ==
--- NOTE | 2022-05-26 | DI.RAD_ITS ---
Exam(s) XR RIBS RT W PA LAT CHEST EXAM: XR RIBS RT W PA LAT CHEST CLINICAL HISTORY: ACUTE BACK PAIN, M54.89, RT POSTERIOR RIB PAIN, S/P FALL 1 WEEK AGO TECHNIQUE: 2D digital imaging was performed.Six images were obtained. COMPARISON: No exams were available for comparison FINDINGS: MEDIASTINUM: Normal. HEART: Normal. PULMONARY VASCULATURE: Normal. LUNGS: Clear. PLEURAL SPACE: No pleural effusion or pneumothorax. BONE:Normal. RIGHT RIBS: Normal. OTHER FINDINGS:Normal. IMPRESSION: 1. No acute pulmonary findings. 2. Unremarkable right ribs. DATA REPOSITORY: RADIATION DOSE DELIVERED:
--- OUTSIDE RECORDS SUMMARY | 2022-05-26 12:16 | XMS_ITS | Continuity of Care Document ---
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 Role Phone CAROL RUGGIERO Primary Care Physician Encounter LTTL_MD FIN NBR [id number] Date(s): 01/26/22 - 01/26/22 [facility] [address] [place], [place] [address] Encounter Diagnosis GERD - Gastro-esophageal reflux disease(Discharge Diagnosis) - 01/26/22 Discharge Disposition: Home-No Follow Up Attending Physician: Michael Lockwood MD Admitting Physician: Michael Lockwood MD Referring Physician: Michael Lockwood MD Allergies, Adverse Reactions, Alerts Substance Reaction Severity Status penicillin Unknown Active Assessment and Plan Future Appointments Functional Status 01/26/22 ADLs Independent Family Member Travel History No recent t ravel Recent Travel History No recent travel Other exposure to Infectious Disease Non e 01/25/22 Living Situation Home independently Medications omeprazole 40 mg oral delayed release capsule 40 mg = 1 cap, Oral, BID, # 30 cap, 0 Refill(s) Start Date: 01/25/22 Status: Ordered Problem List Condition Confirmation Course Effective Dates Status Health St atus Informant GERD - Gastro-esophageal reflux disease Confirmed Active Procedures Procedure Date Related Diagnosis Body Site Status Esophagogastroduodenoscopy Biopsy 1 01/26/22 Completed Appendectomy Completed Hernia repair Completed Shoulder repair Completed 1auto-populated from documented surgical case Vital Signs Most recent to oldest [Reference Range]: 1 2 3 4 Temperature Temporal Artery [36-38 Deg C] 37.2 Deg C (01/26/22 8:14 AM) 37.3 Deg C (01/26/22 8:14 AM) Peripheral Pulse Rate [60-100 bpm] 66 bpm (01/26/22 9:31 AM) 77 bpm (01/26/22 9:07 AM) 69 bpm (01/26/22 8:14 AM) 69 bpm (01/26/22 8:14 AM) Respiratory Rate [12-24 br/min] 16 br/min (01/26/22 8:14 AM) 16 br/min (01/26/22 8:14 AM) Blood Pressure [90-140/60-90 mmHg] 105/60mmHg (01/26/22 9:31 AM) 97/63mmHg (01/26/22 9:07 AM) 118/70mmHg (01/26/22 8:14 AM) 118/70mmHg (01/26/22 8:14 AM) Mean Arterial Pressure, Cuff [65-140 mmHg] 75 mmHg (01/26/22 9:31 AM) 74 mmHg (01/26/22 9:07 AM) Mean Arterial Pressure Cuff 74 mmHg (01/26/22 9:31 AM) 74 mmHg (01/26/22 9:07 AM) Weight 108.860 kg (01/25/22 12:14 PM) Weight Dosing 108.860 kg (01/25/22 12:14 PM) Height 180.340 cm (01/25/22 12:14 PM) Height/Length Dosing 180.340 cm (01/25/22 12:14 PM) Social History Social History Type Response Tobacco Former tobacco user Tobacco Use:. Sex Hospital Discharge Instructions Follow Up Care 01/18/2022 17:40:52 With:Follow up with primary care provider Address: When:1 month Comments: NEEDED Patient Care team information Personnel Name: CAROL RUGGIERO Address: Address: [address] [place] [address] [place]
--- OUTSIDE RECORDS SUMMARY | 2022-05-26 12:16 | XMS_ITS ---
Author Name HermiloElayne rodríguez Address [address] [place], [place] [id number] Organization [facility] Address [address] [place] [id number] Care Team Providers Care Md Pediatric Allergist Name Role Phone Elayne Terrell Unavailable [phone] PROBLEMS Type Condition ICD9-CM Code TWG16-CF Code Onset Dates Condition Status SNOMED Code Problem Gastroesophageal reflux disease, unspecified whether esophagitis present K21.9 Active [id number] ALLERGIES Substance Reaction Event Type Date Status Penicillin Unknown Drug Allergy Dec, Active ENCOUNTERS Encounter Location Date Diagnosis [facility] [address] [place] [phone] Dec, Pyrosis R12 and Gastroesophageal reflux disease, unspecified whether esophagitis present K21.[address] [place] [id number] Nov, [facility] [address] [place] [phone] Jun, Encounter for screening laboratory testing for COVID-19 virus Z20.828 [facility] [address] [place] [id number] Oct, Encounter for other administrative examinations Z02.89 IMMUNIZATIONS No Known Immunizations SOCIAL HISTORY Never Assessed REASON FOR REFERRAL FUNCTIONAL STATUS PLAN OF CARE Activity Details VITAL SIGNS Height 71 in 2021-12-30 Weight 253 lbs 2021-12-30 Temperature 97.3 degrees Fahrenheit Heart Rate 62 /min 2021-12-30 Oximetry 97 2021-12-30 BMI 35.28 kg/m2 2021-12-30 Blood pressure systolic 118 mm Hg Blood pressure diastolic 70 mm Hg 2021-12 MEDICATIONS Medication Instructions Dosage Frequency Start Date End Date Duration Status Omeprazole 40 MG Orally Once a day 1 capsule 30 minutes before morning meal 24h 30 day(s) Active Sucralfate 1 GM/10ML Orally Twice a day 10 mL on an empty stomach 12h 30 day(s) Active PROCEDURES Procedure Date Ordered Result Body Site OCD Urine Drug Screen (collection only) November 11, 2018 IVY -PHONE E/M PHYS/QHP 5-10 MIN June 27, 2020 RESULTS Name Result Date Reference Range COVID 19 (POS) [facility] Ag Card 2020-06-14 4 SARS-CoV-2 OCD URINE COLLECTION 2018-11-11 REASON FOR VISIT GI-FOLLOW UP EGD, GI-EGD, GI- GERD, IVY covid test, Point of Service COVID 19 Screening, OCC [facility] Insurance Providers Health Insurance Type Health Plan Insurance Address Health Plan Insurance Phone Health Plan Insurance Name Health Plan Coverage Dates Member ID Patient Relationship to Subscriber Patient Address Patient Phone Patient Name Patient Date of Subscriber ID Subscriber Name Subscriber Date of Group No [employer] [address] [address] [facility] [id number] [employer] - [employer] self Miky Gochie [id number] [place] MED[place] [address] [facility] [id number] [phone] [place] self Miky Gochie [id number] [place] [address] [facility] [address] [place] self Miky Gochie [id number]
== END 2022-05-26 12:32 ==
LOC: DI 12:13
PROVIDERS: PCP Nurse Practitioner Family; Visit Provider Physician Assistant
DX: M54.89 Other dorsalgia (principal)
CPT/HCPCS: 71046; 71100

== ENCOUNTER 2023-02-16 15:16 | Emergency (ER) | payer MEDICAID, SELFPAY ==
[2023-02-16 15:19] VITALS: BP 145/74; PULSE 79; RESP 18; TEMP 37.2; O2SAT 97
--- NOTE | 2023-02-16 15:30 | DI.RAD_ITS ---
Exam(s) XR TIB/FIB LT XR KNEE LT 3V AP,LAT,RICARDO EXAM: XR KNEE LT 3V AP,LAT,RICARDO and XR tib/fib LT CLINICAL HISTORY: fall, leteral knee pain, suspect fib fx. TECHNIQUE: 2D digital imaging was performed of the left tib fib and knee. Five images were obtained . AP, lateral and PA tunnel views were obtained. COMPARISON: CR KNEES BILAT AP LATERALS from 07/26/2010 FINDINGS: BONES: No acute fracture is present. No bony destructive lesion is seen. There is a question of a ve rtical lucency anterior to the spine on the lateral view. It may be artifact. This is only seen on the lateral view of the knee. On the lateral tib fib view, no lucency persists. JOINTS: The knee is normally aligned. No joint effusion is seen. No loose body. SOFT TISSUE: Normal. IMPRESSION: 1. No definite fracture is identified. If symptoms persist a follow-up examination or CT scan should be considered. 2. Findings were discussed with Dr. Milligan at 4:29 p.m. on 02/16/2023. DATA REPOSITORY: RADIATION DOSE DELIVERED:
--- NOTE | 2023-02-16 15:44 | ED.GENADUL_ITS ---
Discharge Plan Disposition Patient Disposition: Home Discharge Details Clinical Impression: Acute pain of left knee, Contusion of fibula Primary Care Provider: [facility] ED Provider: Ramsey Milligan Home Meds and New Rx's Prescriptions: No Action acetaminophen 325 mg capsule 650 mg PO Q6H PRN omeprazole 40 mg capsule,delayed release(DR/EC) 40 mg PO DAILY Patient Comments: TAKE ONE CAPSULE BY MOUTH EVERY DAY Discharge Instructions Instructions: Contusion in Adults (ED), Knee Pain (ED) Additional Instructions: At this time your x-ray shows no evidence of fractures. I suspect you bruised and contused the proximal fibula, and sprain the surrounding ligaments. Please take Tylenol and Motrin for pain. Please ice the area regularly. Please avoid aggressive activity with your knee for the next week. Please use the crutches to try to limit the amount of stress strain and use that you have for the left knee. If you notice continued pain after 1 to 2 weeks of rest and NSAIDs, you may require repeat imaging and potential evaluation by an claims specialist. If you notice any worsening of your symptoms, or any new symptoms such as vomiting, diarrhea, fever, chills, shortness of breath, chest pain, numbness, weakness, or fainting , please return immediately to the emergency department for reevaluation. Please follow up with your primary care provider as soon as possible for reassessment and reevaluation. As always, it was a pleasure participating in your medical care today. Referrals: Chelsea Marina [Primary Care Provider] - Medical Decision Making This is a pleasant 27-year-old male who was on an 8 foot ladder today and fell. His left knee got caught, he landed on his right hand and hit his left knee. He has had pain since then in the left knee. Mild abrasion on the right thenar eminence. He denies hitting his head or loss of consciousness. Pain in his left lower extremity is worse with ambulation or palpation. This occurred 30 minutes ago. He denies any numbness tingling or weakness otherwise. No pain in his hand or wrist otherwise. Tetanus was updated 4 years ago. No head neck chest back or shoulder pain per report otherwise. He is left-hand dominant. No other complaints at this time. No other modifying factors. Exam demonstrates tenderness over the proximal fibula on the left, questionable tenderness over the anterior lateral tibial plateau on the left. Minimal patellar tenderness. No tenderness in the right hand or wrist otherwise. Small abrasions are noted on the thenar eminence. No other tenderness on the remainder of his exam. No other signs of trauma otherwise. We will get an x- ray to rule out fracture in the right fibula and knee. Will give Tylenol and Motrin monitor closely and reassess. He did not hit his head. No indication for CT imaging of the head. 4:46 PM X-ray results negative for evidence of fracture. Patient able to ambulate. Will discharge home with crutches and recommend for rest and NSAID therapy and ice. I also discussed with the patient that his symptoms notably persist after a week of rest he may require repeat imaging and potential CT imaging. However at this time there is no clear clinical evidence on assessment of tibial plateau fracture, or occult fibular fracture. Discussed red flags for which to return. Significant other is at bedside. I have extensively reviewed the treatment plan and discharge instructions with the patient and their family. I have addressed all patient concerns at this time. The patient and family was made aware of what symptoms to monitor for that would warrant a return to the emergency department. Discussed the plan with the patient and family, they demonstrate verbal understanding and agreement with our assessment and plan at this time. The documentation in this chart was dictated using [employer] dictation software. Please excuse any dictation errors. FINDINGS: BONES: No acute fracture is present. No bony destructive lesion is seen. There is a question of a vertical lucency anterior to the spine on the lateral view. It may be artifact. This is only seen on the lateral view of the knee. On the lateral tib fib view, no lucency persists. JOINTS: The knee is normally aligned. No joint effusion is seen. No loose body. SOFT TISSUE: Normal. IMPRESSION: 1. No definite fracture is identified. If symptoms persist a follow-up examination or CT scan should be considered. 2. Findings were discussed with Dr. Milligan at 4:29 p.m. on 02/16/2023. FINDINGS: BONES: No acute fracture is present. No bony destructive lesion is seen. There is a question of a vertical lucency anterior to the spine on the lateral view. It may be artifact. This is only seen on the lateral view of the knee. On the lateral tib fib view, no lucency persists. JOINTS: The knee is normally aligned. No joint effusion is seen. No loose body. SOFT TISSUE: Normal. IMPRESSION: 1. No definite fracture is identified. If symptoms persist a follow-up examination or CT scan should be considered. 2. Findings were discussed with Dr. Milligan at 4:29 p.m. on 02/16/2023. HPI General Date/Time Provider Initiated Documentation: 02/16/23 15:34 . HPI Narrative: This is a pleasant 27-year-old male who was on an 8 foot ladder today and fell. His left knee got caught, he landed on his right hand and hit his left knee. He has had pain since then in the left knee. Mild abrasion on the right thenar eminence. He denies hitting his head or loss of consciousness. Pain in his lef t lower extremity is worse with ambulation or palpation. This occurred 30 minutes ago. He denies any numbness tingling or weakness otherwise. No pain in his hand or wrist otherwise. Tetanus was updated 4 years ago. No head neck chest back or shoulder pain per report otherwise. He is left-hand dominant. No other complaints at this time. No other modifying factors. Related Data Home Medications Medication Instructions Recorded Confirmed acetaminophen 325 mg capsule 650 mg PO Q6H PRN 10/21/19 02/16/23 omeprazole 40 mg capsule,delayed 40 mg PO DAILY 09/14/20 02/16/23 release Allergies Allergy/AdvReac Type Severity Reaction Status Date / Time Penicillins Allergy Severe SKIN RASH Verified 02/16/23 15:22 General Stated Complaint: Orthopedic GAEL: 4 Review of Systems All systems reviewed & are unremarkable except as noted in HPI and below PFSH All Active Problems (Updated 02/16/23 @ 16:20 by Ramsey Milligan DO) Contusion of fibula (Acute) Acute pain of left knee (Acute) Gastritis (Acute) Adhesive capsulitis of right shoulder (Acute) Surgical History Repair of inguinal hernia Appendectomy Social History Smoking/Tobacco Use Status: Never Smoking risk assessment performed?: Yes Alcohol Intake: current Alcohol Intake frequency: a few times a week Drug use: Never Substance use type: does not use Current gender identity: male Do you feel safe at home: Yes Do you feel safe in your relationship?: Yes Exam Narrative Exam Narrative: 1.Const: Well-nourished, Well-developed, appearing stated age 2.Eyes: PERRL, no conjunctival injection, and symmetrical lids. 3.ENT: Atraumatic external nose and ears. Moist MM. Neck: Symmetric, trachea midline, No thyromegaly. 4.CVS: +S1/S2, No murmurs or gallops. Peripheral pulses 2+ and equal in all extremities. Brisk capillary refill in all extremities. 5.RESP: Unlabored respiratory effort. Clear to auscultation bilaterally. No wheezes rales or rhonchi 6.GI: Soft, Nontender/Nondistended, No hepatosplenomegaly. No guarding or rebound. 7.MSK: No head neck chest or back pain. No tenderness in the cervical thoracic or lumbar spine on palpation. Patient demonstrates no right lower extremity tenderness. Mild left lower extremity tenderness at the proximal fibula, tibial plateau, and midshaft fibula. No significant laxity in the knee for varus or valgus stressing, but there is notable tenderness which does limit exam to a degree. Anterior and posterior drawer test negative for laxity. Right hand: Right wrist demonstrates some excoriations. Symmetrically palpable radial and ulnar pulses. Capillary refill less than 2 seconds to all digits. Intact sensation to light touch of the radial, median and ulnar nerves demonstrated by testing in the dorsal web space of the thumb, the distal palmar aspect of the index finger, and the lateral surface of the fifth finger. 2 point discrimination intact to 5mm (up to 6mm can be normal in digits 3-5) of discrimination in the affected digit. Intact motor function of the radial, median and ulnar nerves demonstrated by strength of extension of the isolated distal joint of the index finger, hand fill technician, and spreading of the 2nd through 5th digits. Intact recurrent median nerve as demonstrated by ability to move thumb fully through opposition, abduction and flexion. No snuffbox tenderness. 8.Skin: Warm, Dry. No rashes or lesions. 9.Neuro: cryptologist II-XII grossly intact. Sensation grossly intact, no focal neurologic deficits. 10.Psych: (AAO) x3. Appropriate mood and affect Course Vital Signs Vital signs: Vital Signs Temperature 37.2 C 02/16/23 15:19 Pulse 79 02/16/23 15:19 Respiratory Rate 18 02/16/23 15:19 Blood Pressure 145/74 H 02/16/23 15:19 Pulse Oximetry 97 02/16/23 15:19 Temperature 37.2 C 02/16/23 15:19 Temperature Source Tympanic 02/16/23 15:19 Pulse 79 02/16/23 15:19 Respiratory Rate 18 02/16/23 15:19 Respiratory Effort Normal, Non-Labored 02/16/23 15:22 Blood Pressure 145/74 H 02/16/23 15:19 Blood Pressure Position Sitting 02/16/23 15:19 Pulse Oximetry 97 02/16/23 15:19 Oxygen Delivery Method Room Air 02/16/23 15:19 Oxygen Flow Rate 0 02/16/23 15:19 Pain Level 8 02/16/23 15:19
[2023-02-16] MEDS: Ibuprofen 800 MG TAB PO (16:21)
[2023-02-16] MEDS: Acetaminophen 500 MG TAB 1000 MG PO (16:21)
== END 2023-02-16 16:43 | disposition home or self-care (01) ==
PROVIDERS: Emergency Provider Student in an Organized Health Care Education/Training Program; PCP Nurse Practitioner Family
DX: M25.562 Pain in left knee (principal); S80.02XA Contusion of left knee, initial encounter; S83.8X2A Sprain of other specified parts of left knee, initial encounter; W11.XXXA Fall on and from ladder, initial encounter
CPT/HCPCS: 73562; 99283; 73590

== ENCOUNTER 2024-01-17 02:06 | Outpatient (CLI) | payer MEDICAID, SELFPAY ==
[2024-01-17 15:55] LABS: HCT 40.3 % (40.0-50.0); MCH 29.7 pg (27.0-33.0); MCHC 34.7 % (32.0-36.0); MCV 85 fL (80-95); MPV 11.2 fL (8.0-11.0); Platelet Count 194 10^3/uL (130-400); RBC 4.72 10^6/uL (4.36-5.78); RDW 12.3 % (11.8-14.1); RDW-SD 38.3 fL; WBC 6.23 10^3/uL (4.4-10.8)
[2024-01-17 16:25] LABS: Hemoglobin A1C 5.7 % (<5.7)
[2024-01-17 18:03] LABS: ALT 101 U/L (16-63); AST 43 U/L (15-37); Albumin 4.8 g/dL (3.4-5.0); Alkaline Phosphatase 52 U/L (46-116); BUN 11 mg/dL (7-18); Bilirubin, Total 1.48 mg/dL (0.2-1.0); CREATININE 1.1 mg/dL (0.70-1.30); Calcium 9.8 mg/dL (8.5-10.1); Calculated LDL 105 mg/dL (<100); Chloride 101 mmol/L (98-107); Cholesterol 193 mg/dL (<200); Estimated GFR 93.19 (mL/min/1.73m2); Glucose 100 mg/dL (74-106); HDL Cholesterol 37 mg/dL (40-60); Potassium 3.8 mmol/L (3.5-5.1); Sodium 139 mmol/L (136-145); TSH (W/Ref FT4) 1.57 uIU/mL (0.36-3.74); Total Protein 8.6 g/dL (6.4-8.2); Triglyceride 258 mg/dL (<150)
== END 2024-01-17 02:07 | disposition home or self-care (01) ==
LOC: LBO 02:06
PROVIDERS: PCP Nurse Practitioner Family; Visit Provider Nurse Practitioner Family
DX: Z00.00 Encounter for general adult medical examination without abnormal findings (principal); K21.9 Gastro-esophageal reflux disease without esophagitis; E66.9 Obesity, unspecified; F10.21 Alcohol dependence, in remission
CPT/HCPCS: 36415; 80053; 80061; 85027; 83036; 84443